=== PATIENT | male | born 1970 | race Caucasian/White ===

== ENCOUNTER 2020-07-07 12:31 | Emergency (ER) | payer BC, OTHER, SELFPAY ==
[2020-07-07 12:33] VITALS: BP 164/102; PULSE 53; RESP 18; TEMP 36.9; O2SAT 98; BMI 38.2
--- NOTE | 2020-07-07 12:44 | PC.NURSE ---
EKG done at 1244 and shown to ER doctor
[2020-07-07 12:45] VITALS: O2SAT 94
--- NOTE | 2020-07-07 12:57 | XR_ITS ---
WS: [id number] XR chest 1V portable [id number] REASON FOR EXAM: chest pain FINDINGS: Moderately tortuous and ectatic thoracic aorta. The heart is mildly enlarged. No active pulmonary parenchymal pleural disease is noted. Old healed fracture of the right clavicle and multiple old healed rib fractures bilaterally. XR/XR chest 1V portable [id number] IMPRESSION: No acute chest abnormality.
--- NOTE | 2020-07-07 12:57 | ECG_ITS ---
[facility] Test Date: 2020-07-07 Pat Name: Florencio Canales Department: Room: Gender: Male Product Marketing Coordinator: : 1970 Requested By: Junaid Aburto Order Number: [id number] Sydnee MD: Zoe Holder M.D. Measurements Intervals [place] Rate: 51 P: 17 SD: 152 QRS: 48 QRSD: 89 T: 155 QT: 444 QTc: 411 Interpretive Statements SINUS BRADYCARDIA ST DEVIATION AND MODERATE T-WAVE ABNORMALITY, CONSIDER ANTEROLATERAL ISCHEMIA [-0.1+ mV T WAVE IN V3-V6] Compared to ECG 08/02/2019 05:39:03 T-wave abnormality now present Possible ischemia now present Left ventricular hypertrophy no longer present ST (T wave) deviation no longer present Electronically Signed On 07-07-2020 21:34:36 CDT by Zoe Holder M.D. [id number]
--- NOTE | 2020-07-07 13:05 | W.ED.CHESTPA ---
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 Patient did take a nitro and it improved his symptoms. He tells me he had an [facility] a year ago but had a normal angiogram. When I reviewed the old records it looks like he had a hypertensive episode there was thought to be some demand ischemia were otherwise normal coronary arteries and he was discharged home with blood pressure control is been following with Dr. obregon since then but has not seen her in the last 6 to 9 months. He did not have any radiation of pain nausea vomiting or diarrhea today. From what I can tell in the notes it does not look like he had a stress test since his episode in August of last year. MD complaint: chest pain and chest heaviness Onset (ago): hour(s) Timing of current episode: episodic Prior episodes: Yes Onset: during rest Pain location: substernal and left chest Pain radiation: none Severity: moderate Quality: heaviness Relieving factors: nitroglycerin Exacerbating factors: nothing Associated symptoms: Deny abdominal pain, diaphoresis, dyspnea, fever(s), leg edema, nausea, palpitations, sense of impending doom, syncope or vomiting Treatment prior to arrival: nitroglycerin Review of Systems Const: Denies: fever(s) or diaphoresis ENMT: Denies: throat pain, ear or mastoid pain, nasal discharge or nasal congestion Card: Denies: palpitations or syncope Resp: Denies: dyspnea GI: Denies: abdominal pain, nausea or vomiting : Denies: flank pain, dysuria, urinary frequency or urinary urgency Skin/Breast: Denies: rash or pruritus [facility] ED PFSH: Medical History (Updated 07/07/20 @ 16:55 by Junaid Moss DO) BPH (benign prostatic hyperplasia) Bradycardia CHF (congestive heart failure) CVA (cerebral vascular accident) Dyspnea on effort GERD (gastroesophageal reflux disease) HTN (hypertension) Hypercholesteremia Nicotine dependence PTSD (post-traumatic stress disorder) Tachycardia Surgical History (Updated 07/07/20 @ 13:09 by Junaid Moss DO) S/P coronary angiogram 08/2019 Family History Father Heart disease Hypertension Stroke Diabetes Mother Heart disease Hypertension Diabetes Social History Smoking and tobacco status: former smoker Physical Exam Const: COMMON NORMALS: no acute distress GENERAL APPEARANCE: cooperative and comfortable ORIENTATION/CONSCIOUSNESS: Yes awake, Yes oriented to person, Yes oriented to place and Yes oriented to time HENMT: COMMON NORMALS: normocephalic, atraumatic and hearing grossly normal bilaterally HEAD & SCALP: normocephalic and atraumatic Eye: COMMON NORMALS: Equal, round and reactive pupils present, EOMs intact bilaterally, conjunctivae normal and no scleral icterus CONJUNCTIVA: Yes conjunctivae normal PUPIL: Yes Equal, round and reactive pupils present Neck/C-Spine: COMMON NORMALS: full ROM, no lymphadenopathy, supple and no JVD Lymph: LYMPHATIC: no lymphadenopathy noted and no lymphedema noted Resp: COMMON NORMALS: normal respiratory effort, No retractions, No use of accessory muscles and clear to auscultation bilaterally AUSCULTATION: clear to auscultation bilaterally Cardio: COMMON NORMALS: no JVD, regular rate, regular rhythm and No murmurs present (Cardio) RATE: regular rate RHYTHM: regular rhythm GI: COMMON NORMALS: Soft to palpation and No hepatosplenomegaly present AUSCULTATION: Yes normoactive bowel sounds PALPATION: Yes Soft to palpation, No Tenderness to palpation present (GI), No Guarding due to palpation present (GI) and Yes No hepatosplenomegaly present Extremity: COMMON NORMALS: normal to inspection, capillary refill normal, no clubbing, cyanosis or edema, no calf tenderness and no pedal edema Neuro: SENSORIUM/ORIENTATION: Yes oriented to person, Yes oriented to place and Yes oriented to time Skin: COMMON NORMALS: no rashes or lesions noted GENERAL SKIN EXAM: no rashes or lesions noted Course Vital Signs: Vital signs: Vital Signs Temperature 98.4 F 07/07/20 12:33 Pulse Rate 60 07/07/20 17:08 Respiratory Rate 17 07/07/20 15:47 Blood Pressure 167/109 07/07/20 17:08 Pulse Oximetry 97 07/07/20 17:08 MDM - Chest Pain MDM Narrative: Medical decision making narrative: Findings reviewed no significant delta troponin will discharge him home if his recurrent symptoms return he does not wish to stay here today. We will have him set up for an outpatient stress test Lab Data: Labs: Lab Results 07/07/20 07/07/20 07/07/20 Range/Units 14:05 14:05 14:05 WBC 7.5 (4.0-10.0) 10^3/ uL RBC 5.01 (4.1-5.3) 10^6/u L Hgb 14.0 (11.7-16.6) g/dL Hct 44.1 (42.0-52.0) % MCV 88.0 (80-94) fL MCH 27.9 L (28.0-34.0) pg MCHC 31.7 (30.0-36.0) g/dL RDW 13.2 (12.1-15.1) % Plt Count 231 (130-400) 10^3/c mm MPV 11.4 H (7.4-10.4) fL Neut % (Auto) 58.8 % Lymph % (Auto) 28.6 % Angelina % (Auto) 9.8 % Eos % (Auto) 1.9 % Baso % (Auto) 0.5 % Neut # (Auto) 4.39 (1.8-7.7) 10^3/u L Lymph # (Auto) 2.1 (0.8-4.8) 10^3/u L Angelina # (Auto) 0.7 (0.2-0.9) 10^3/u L Eos # (Auto) 0.1 (0.0-0.8) 10^3/u L Baso # (Auto) 0.0 (0.0-0.1) 10^3/u L Nucleated RBC % (a uto) 0 % Nucleated RBCs # 0.0 /100WBC Sodium 138 (136-145) mmol/L Potassium 4.4 (3.5-5.1) mmol/L Chloride 102 (98-107) mmol/L Carbon Dioxide 24 (22-29) mmol/L Anion Gap 16.4 (5-19) BUN 20 (6-20) mg/dL Creatinine 1.3 H (0.7-1.2) mg/dL GFR Calculation 58.7 L (90-130) mL/min Glucose 122 H (65-115) mg/dL Calculated Osmolal ity 290 (285-295) mOsm/k g Calcium 9.7 (8.5-10.5) mg/dL Total Bilirubin 0.4 (0.15-1.2) mg/dL AST 20 (0-40) U/L ALT 31 (0-41) U/L Alkaline Phosphata se 104 (40-130) IU/L Troponin T Baselin e 32 H (0-15) ng/L Troponin T 120 Min samish (0-15) ng/L Delta Troponin T (0-10) ABS# Total Protein 6.8 (6.6-8.7) g/dL Albumin 4.2 (3.5-5.2) g/dL Globulin 2.6 (1.3-4.6) g/dL 07/07/20 Range/Units 16:10 WBC (4.0-10.0) 10^3/ uL RBC (4.1-5.3) 10^6/u L Hgb (11.7-16.6) g/dL Hct (42.0-52.0) % MCV (80-94) fL MCH (28.0-34.0) pg MCHC (30.0-36.0) g/dL RDW (12.1-15.1) % Plt Count (130-400) 10^3/c mm MPV (7.4-10.4) fL Neut % (Auto) % Lymph % (Auto) % Angelina % (Auto) % Eos % (Auto) % Baso % (Auto) % Neut # (Auto) (1.8-7.7) 10^3/u L Lymph # (Auto) (0.8-4.8) 10^3/u L Angelina # (Auto) (0.2-0.9) 10^3/u L Eos # (Auto) (0.0-0.8) 10^3/u L Baso # (Auto) (0.0-0.1) 10^3/u L Nucleated RBC % (a uto) % Nucleated RBCs # /100WBC Sodium (136-145) mmol/L Potassium (3.5-5.1) mmol/L Chloride (98-107) mmol/L Carbon Dioxide (22-29) mmol/L Anion Gap (5-19) BUN (6-20) mg/dL Creatinine (0.7-1.2) mg/dL GFR Calculation (90-130) mL/min Glucose (65-115) mg/dL Calculated Osmolal ity (285-295) mOsm/k g Calcium (8.5-10.5) mg/dL Total Bilirubin (0.15-1.2) mg/dL AST (0-40) U/L ALT (0-41) U/L Alkaline Phosphata se (40-130) IU/L Troponin T Baselin e (0-15) ng/L Troponin T 120 Min samish 29.21 H (0-15) ng/L Delta Troponin T -2.79 L (0-10) ABS# Total Protein (6.6-8.7) g/dL Albumin (3.5-5.2) g/dL Globulin (1.3-4.6) g/dL Discharge Plan Discharge Patient Disposition: Home Clinical Impression: Atypical chest pain Condition: Stable Prescriptions: No Action amlodipine 10 mg tablet 10 mg PO DAILY RF: 0 aspirin [Aspir-81] 81 mg tablet,delayed release (DR/EC) 81 mg PO DAILY RF: 0 buspirone 15 mg tablet 15 mg PO BID RF: 0 lisinopril 40 mg tablet 40 mg PO DAILY RF: 0 metoprolol tartrate 25 mg tablet 25 mg PO BID RF: 0 omeprazole 20 mg capsule,delayed release(DR/EC) 20 mg PO DAILY RF: 0 paroxetine HCl 20 mg tablet 20 mg PO DAILY RF: 0 simvastatin 40 mg tablet 40 mg PO DAILY RF: 0 Discharge Orders: Discharge Order (Routine); Ordered 07/07/20 Ordered By: Junaid Moss Referrals: Roni Earl [Primary Care Provider] - Activity Restrictions/Additional Instructions: Case management will call to set you up for a stress test. Return if you have any further problems. 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
[2020-07-07 14:13] LABS: Basophils % 0.5 %; Eosinophils # 0.1 10^3/uL (0.0-0.8); Eosinophils % 1.9 %; Hematocrit 44.1 % (42.0-52.0); Lymphocytes # 2.1 10^3/uL (0.8-4.8); Lymphocytes % 28.6 %; Mean Corpuscular HGB Conc 31.7 g/dL (30.0-36.0); Mean Corpuscular Hemoglobin 27.9 pg (28.0-34.0); Mean Platelet Volume 11.4 fL (7.4-10.4); Monocytes # 0.7 10^3/uL (0.2-0.9); Monocytes % 9.8 %; Neutrophils # 4.39 10^3/uL (1.8-7.7); Neutrophils % 58.8 %; Nucleated Red Blood Cells % 0 %; Platelet Count 231 10^3/cmm (130-400); Red Blood Count 5.01 10^6/uL (4.1-5.3); Red Cell Distribution Width 13.2 % (12.1-15.1); White Blood Count 7.5 10^3/uL (4.0-10.0)
[2020-07-07 14:22] VITALS: BP 152/97; PULSE 49; RESP 14; O2SAT 97
[2020-07-07 14:40] LABS: Alanine Aminotransferase 31 U/L (0-41); Albumin Level 4.2 g/dL (3.5-5.2); Alkaline Phosphatase 104 IU/L (40-130); Anion Gap 16.4 (5-19); Aspartate Amino Transferase 20 U/L (0-40); Blood Urea Nitrogen 20 mg/dL (6-20); Calcium 9.7 mg/dL (8.5-10.5); Carbon Dioxide 24 mmol/L (22-29); Chloride 102 mmol/L (98-107); Globulin 2.6 g/dL (1.3-4.6); Glomerular Filtration Rate 58.7 mL/min (90-130); Glucose 122 mg/dL (65-115); Osmolality Calculated 290 mOsm/kg (285-295); Potassium 4.4 mmol/L (3.5-5.1); Sodium 138 mmol/L (136-145); Total Bilirubin 0.4 mg/dL (0.15-1.2); Total Protein 6.8 g/dL (6.6-8.7)
[2020-07-07 14:43] LABS: Troponin(5th) Baseline 32 ng/L (0-15)
--- NOTE | 2020-07-07 14:57 | ECG_ITS ---
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 Measurements Intervals [place] Rate: 48 P: 24 MI: 158 QRS: 38 QRSD: 94 T: 139 QT: 475 QTc: 428 Interpretive Statements SINUS BRADYCARDIA MODERATE T-WAVE ABNORMALITY, CONSIDER ANTEROLATERAL ISCHEMIA [-0.1+ mV T WAVE IN V3-V6] Compared to ECG 07/07/2020 12:42:18 No significant changes Electronically Signed On 07-08-2020 21:41:23 CDT by Zoe Holder M.D. [id number]
[2020-07-07 15:47] VITALS: BP 142/90; PULSE 54; RESP 17; O2SAT 97
[2020-07-07 16:37] LABS: Troponin 5 2HR 29.21 ng/L (0-15)
[2020-07-07 16:47] LABS: Troponin 5 2HR Delta -2.79 ABS# (0-10)
[2020-07-07 17:08] VITALS: BP 167/109; PULSE 60; O2SAT 97
--- NOTE | 2020-07-10 08:00 | DCPLANNER ---
sales team manager had message to schedule an outpatient stress test for patient. sales team manager faxed order to centralized scheduling. sales team manager will call for appointment information.
--- NOTE | 2020-07-13 15:32 | DCPLANNER ---
Patient has an outpatient stress test scheduled for , July 29, 2020 at 11:30. Centralized scheduling will call patient with appointment information.
--- NOTE | 2020-07-30 10:32 | DCPLANNER ---
Patient had a follow up appointment scheduled for 07.29.20 with a stress test - patient did not attend appointment.
== END 2020-07-07 17:10 | disposition home or self-care (01) ==
PROVIDERS: Emergency Provider Family Medicine; PCP Family Medicine
DX: R07.89 Other chest pain (principal); Z79.82 Long term (current) use of aspirin; I11.0 Hypertensive heart disease with heart failure; I50.9 Heart failure, unspecified; Z86.73 Personal history of transient ischemic attack (TIA), and cerebral infarction without residual deficits; Z87.891 Personal history of nicotine dependence
CPT/HCPCS: 12345; 36415; 71045; 80053; 84484; 85025; 93005; 99283